=== PATIENT | female | born 1960 | race Two or more races ===

== ENCOUNTER 2024-03-28 09:59 | Inpatient (IN) | payer OTHER ==
[~2024-03-28] VITALS: Ht 149.9 cm; Wt 72.6 kg
[2024-03-28] MEDS ORDERED: NORVASC5 MG (10:27)
[2024-03-28] MEDS ORDERED: ZESTRIL20 MG (10:27)
[2024-03-28] MEDS ORDERED: CARDURA XL4 MG (10:27)
[2024-03-28] MEDS ORDERED: 0.9 % SODIUM CHLORIDE 1,000 ML IV ONE (11:00)
[2024-03-28] MEDS ORDERED: BENZONATATE 200 MG CAPSULE PO ONE (11:00)
[2024-03-28] MEDS ORDERED: NIFEDIPINE 10 MG CAPSULE PO ONE ×2 (11:00→11:18)
[2024-03-28] MEDS ORDERED: LEVALBUTEROL HCL 1.25 MG/3 ML SOLUTION IH ONE (11:00)
[2024-03-28] MEDS ORDERED: LEVALBUTEROL HCL 0.63 MG/3 ML SOLUTION IH ONE (12:24)
[2024-03-28 12:43] LABS: HEMATOCRIT 45.8 % (36.0-45.00); HEMOGLOBIN 15.5 g/dL (12.0-15.00); MEAN CELL VOLUME 80.6 fL (80.00-100.00); MEAN CORPUSCULAR HEMOGLOBIN 27.2 pg (27.00-32.0); MEAN CORPUSCULAR HGB CONC 33.7 g/dl (32.0-36.0); PLATELET COUNT 205 K/uL (150-450); RED BLOOD COUNT 5.68 M/uL (4.00-6.00); RED CELL DISTRIBUTION WIDTH 14.9 % (11.5-14.5)
[2024-03-28 12:45] LABS: URINE APPEARANCE Clear; URINE BILIRRUBIN Negative (NEGATIVE); URINE BLOOD Negative; URINE COLOR Yellow; URINE GLUCOSE Negative (NEGATIVE); URINE KETONE Negative (NEGATIVE); URINE LEUKOCYTE Negative; URINE NITRATE Negative; URINE PROTEIN Negative (NEGATIVE); URINE UROBILINOGEN 0.2 E.U./dl
[2024-03-28 12:49] LABS: URINE BACTERIA 192.1 uL (0.0-1933); URINE EPITHELIAL CELLS 22.1 uL (0.0-38.8); URINE RBC 4.4 uL (0.0-20.8)
[2024-03-28 12:56] LABS: INR 1.05; PARTIAL THROMBOPLASTIN TIME 28.9 SECONDS (22.0-34.0); PROTHROMBIN TIME 11.4 SECONDS (9.0-11.5)
[2024-03-28 13:01] LABS: URINE CAST 0.14 uL (0.0-1.40)
[2024-03-28 13:02] LABS: ALBUMIN 3.8 gm/dL (3.4-5.0); BILIRUBIN TOTAL 0.49 mg/dL (0.3-1.2); CALCIUM 9.4 mg/dL (8.5-10.1); CREATININE SERUM 0.52 mg/dL (0.55-1.02); GFR 118.34; GLOBULINA 3.7 G/DL (2.4-3.5); POTASSIUM 4.11 mEq/L (3.5-5.1); TOTAL PROTEIN 7.5 gm/dL (6.4-8.2)
[2024-03-28] MEDS ORDERED: NITROGLYCERIN IN 5 % DEXTROSE 250 ML IV SCH (13:37)
[2024-03-28] MEDS ORDERED: FAMOtidine 10 MG/ML (4ML VIAL) IV ONE (14:00)
[2024-03-28] MEDS ORDERED: MORPHINE SULFATE 4 MG/ML VIAL IV ONE (14:00)
[2024-03-28] MEDS ORDERED: ONDANSETRON HCL 2 MG/ML VIAL IV ONE (14:00)
[2024-03-28] MEDS ORDERED: NITROGLYCERIN IN 5 % DEXTROSE 50 MG/250 ML BOTTLE IV ONE (14:07)
[2024-03-28] MEDS ORDERED: FAMOTIDINE/PF 20 MG/2 ML VIAL ONE (14:08)
[2024-03-28] MEDS ORDERED: ONDANSETRON HCL 2 MG/ML VIAL ONE (14:09)
[2024-03-28] MEDS ORDERED: ATORVASTATIN CALCIUM 40 MG TABLET PO SCH (18:06)
[2024-03-28] MEDS ORDERED: METOPROLOL SUCCINATE 25 MG TAB.SR.24H PO SCH (18:06)
[2024-03-28] MEDS ORDERED: ENOXAPARIN SODIUM 60 MG/0.6 ML SYRINGE SUBCUTANEO SCH (18:07)
[2024-03-28] MEDS ORDERED: ONDANSETRON HCL 4 MG in 0.9 % SODIUM CHLORIDE 50 ML IV PRN (18:15)
[2024-03-28] MEDS ORDERED: ASPIRIN 325 MG TABLET PO ONE (18:15)
[2024-03-28] MEDS ORDERED: ACETAMINOPHEN 500 MG GEL..CAP PO PRN (18:15)
[2024-03-28] MEDS ORDERED: TICAGRELOR 90 MG TABLET PO ONE (18:15)
[2024-03-28 18:23] VITALS: BP 120/60
[2024-03-28] MEDS ORDERED: ENOXAPARIN SODIUM 40 MG/0.4 ML SYRINGE SUBCUTANEO ONE (19:39)
[2024-03-28 21:32] VITALS: BP 154/88; O2SAT 98
[2024-03-29] VITALS (18 sets, daily range): BP systolic 126–180; BP diastolic 82–110; O2SAT 95–100
[2024-03-29] MEDS ORDERED: TICAGRELOR 90 MG TABLET PO ONE ×2 (02:12→17:37)
[2024-03-29] MEDS ORDERED: ENOXAPARIN SODIUM 80 MG/0.8 ML SYRINGE SUBCUTANEO ONE (02:12)
[2024-03-29] MEDS ORDERED: LORazepam 1 MG TABLET PO STA (02:48)
[2024-03-29] MEDS ORDERED: ENOXAPARIN SODIUM 80 MG/0.8 ML SYRINGE SUBCUTANEO SCH (05:00)
[2024-03-29] MEDS ORDERED: TICAGRELOR 90 MG TABLET PO SCH (05:00)
[2024-03-29 06:13] LABS: CHOL HDL RATIO 3.9 (0-5.0)
[2024-03-29 06:15] LABS: TSH 0.233 uIU/mL (0.358-3.74)
[2024-03-29] MEDS ORDERED: ASPIRIN 81 MG TAB.CHEW PO SCH (09:00)
[2024-03-29] MEDS ORDERED: FAMOTIDINE/PF 20 MG in 0.9 % SODIUM CHLORIDE 8 ML IV PUSH SCH (09:00)
[2024-03-29] MEDS ORDERED: NITROGLYCERIN IN 5 % DEXTROSE 50 MG/250 ML BOTTLE IV ONE (15:34)
[2024-03-29] MEDS ORDERED: PANTOPRAZOLE SODIUM 40 MG/VIAL VIAL IV PUSH SCH (17:00)
[2024-03-29] MEDS ORDERED: HYOSCYAMINE SULFATE 0.125 MG TAB.SUBL ONE (19:07)
[2024-03-29] MEDS ORDERED: HYOSCYAMINE SULFATE 0.125 MG TAB.SUBL SL PRN (19:15)
[2024-03-29] MEDS ORDERED: HYOSCYAMINE SULFATE 0.125 MG TAB.SUBL SL ONE (19:15)
[2024-03-29] MEDS ORDERED: CLONAZEPAM 0.5 MG TABLET PO SCH (21:00)
[2024-03-29] MEDS ORDERED: TEMAZEPAM 15 MG CAPSULE PO SCH (21:00)
[2024-03-30] VITALS (22 sets, daily range): BP systolic 82–130; BP diastolic 60–96; O2SAT 95–100
[2024-03-30] MEDS ORDERED: CHLORHEXIDINE GLUCONATE 120 ML BOTTLE TOP ONE (08:53)
[2024-03-30] MEDS ORDERED: PANTOPRAZOLE SODIUM 40 MG TABLET.DR PO SCH (09:00)
[2024-03-30] MEDS ORDERED: SENNOSIDES 1 TAB TABLET PO NR (13:00)
[2024-03-30] MEDS ORDERED: GLYCERIN 2.1 GM SUPP.RECT RECTAL ONE (17:30)
[2024-03-30] MEDS ORDERED: MORPHINE SULFATE 4 MG/ML VIAL IV PRN (21:00)
[2024-03-30] MEDS ORDERED: BENZONATATE 200 MG CAPSULE PO ONE ×2 (21:00→22:30)
[2024-03-31] VITALS (9 sets, daily range): BP systolic 93–127; BP diastolic 57–91; O2SAT 94–100
[2024-03-31] MEDS ORDERED: MORPHINE SULFATE 4 MG/ML CARTRIDGE IV PRN (08:30)
[2024-03-31] MEDS ORDERED: EPINEPHRINE HCL/PF 4 MG in DEXTROSE 5 % IN WATER 250 ML IV SCH (08:45)
[2024-03-31] MEDS ORDERED: SENNOSIDES 1 TAB TABLET PO SCH (09:00)
[2024-03-31] MEDS ORDERED: MINERAL OIL 30 ML BLIST.PACK PO NR (09:09)
[2024-03-31] MEDS ORDERED: LACTULOSE 20 G/30 ML BLIST.PACK PO NR (09:09)
[2024-03-31] MEDS ORDERED: MAGNESIUM HYDROXIDE 30 ML BLIST.PACK PO NR (09:10)
[2024-04-01] MEDS ORDERED: HALOPERIDOL LACTATE 5 MG/ML AMPUL IV PRN (02:15)
[2024-04-01 04:00] VITALS: BP 117/79; O2SAT 97
[2024-04-01 07:39] VITALS: BP 115/49; BP 119/79; O2SAT 100
[2024-04-01 11:58] VITALS: BP 117/71; O2SAT 99
== END 2024-04-01 13:22 | disposition home or self-care (01) | DRG 281 ==
LOC: ER 09:59 → SEC-K 18:27 → ICU 18:27 → ICU-2 22:36 → ICU 03-30 02:13
PROVIDERS: General Practice; ADMIT Internal Medicine; ATTEND Internal Medicine
PROC: B24BZZZ Ultrasonography of Heart with Aorta (ICD-10-PCS; principal; 2024-03-28)
DX: I21.4 Non-ST elevation (NSTEMI) myocardial infarction (principal); I51.81 Takotsubo syndrome; I24.9 Acute ischemic heart disease, unspecified; I34.0 Nonrheumatic mitral (valve) insufficiency; I25.10 Atherosclerotic heart disease of native coronary artery without angina pectoris